=== PATIENT | female | born 1980 ===

== ENCOUNTER 2017-03-24 11:26 | Emergency (ER) | payer OTHER ==
[2017-03-24 11:37] VITALS: RESP 18; TEMP 97.9; O2SAT 98
--- NOTE | 2017-03-24 12:59 | C.PDOC ---
History Of Present Illness 37 year old female presents to the ED with complaints of left breast one month. Patient notes pain is constant and describes as cramping. She denies heavy lifting, weakness, numbness, chest pain, shortness of breath, or fever. Time Seen by Provider: 03/24/17 11:40 Chief Complaint (Nursing): Breast Problem History Per: Patient History/Exam Limitations: no limitations Onset/Duration Of Symptoms: Persistent (1month) Current Symptoms Are (Timing): Still Present Recent travel outside of the [place]: No Past Medical History Reviewed: Historical Data, Nursing Documentation, Vital Signs Vital Signs: Last Vital Signs Temp 97.9 F 03/24/17 11:35 Pulse 79 03/24/17 13:11 Resp 18 03/24/17 13:11 BP 124/72 03/24/17 13:11 Pulse Ox 98 03/24/17 21:48 - Medical History PMH: Back Problems Surgical History: (x2) Family History: States: Diabetes - Social History Hx Tobacco Use: No Hx Alcohol Use: No Hx Substance Use: No - Immunization History Hx Tetanus Toxoid Vaccination: No Hx Influenza Vaccination: No Hx Pneumococcal Vaccination: No Review Of Systems Except As Marked, All Systems Reviewed And Found Negative. Constitutional: Negative for: Fever Cardiovascular: Negative for: Chest Pain Respiratory: Negative for: Shortness of Breath Musculoskeletal: Positive for: Arm Pain (left arm pain ), Other (left breast pain) Skin: Negative for: Rash Neurological: Negative for: Weakness, Numbness Physical Exam - Physical Exam Appears: Non-toxic, No Acute Distress Skin: Warm, Dry, No Rash Head: Atraumatic, Normacephalic Eye(s): bilateral: Normal Inspection, PERRL, EOMI Oral Mucosa: Moist Neck: Normal ROM, Supple Chest: Symmetrical, No Deformity, No Tenderness, Other (Breasts: (-) erythema, ( -) tenderness, (-) swelling, (-) mass, (-) nipple discharge, (-) rash/ discoloration, (-) dimpling. Exam was chaperoned by computer systems technology instructorab Foreman ) Cardiovascular: Rhythm Regular, No Friction Rub, No Murmur Respiratory: No Rales, No Rhonchi, No Wheezing, Other (clear to auscultation bilaterally ) Back: No CVA Tenderness Extremity: Normal ROM, No Tenderness, Capillary Refill (good capillary refill, less than two seconds ), No Deformity, No Swelling Neurological/Psych: Oriented x3, Normal Speech, Normal Motor Gait: Steady ED Course And Treatment O2 Sat by Pulse Oximetry: 98 (RA) Pulse Ox Interpretation: Normal Medical Decision Making Medical Decision Making: Patient states she has a family history of breast Ca. PAtient was instructed to follow up with the medical doctor/OBGYN for mammogram referral. Disposition - Disposition Referrals: [facility] at [facility] [Outside] Disposition: HOME/ ROUTINE Disposition Time: 12:58 Condition: GOOD Additional Instructions: Follow up with the medical doctor within 1-2 days. return if worsened. 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 - Scribe Statement The provider has reviewed the documentation as recorded by the Scribaden Munoz All medical record entries made by the Scribe were at my direction and personally dictated by me. I have reviewed the chart and agree that the record accurately reflects my personal performance of the history, physical exam, medical decision making, and the department course for this patient. I have also personally directed, reviewed, and agree with the discharge instructions and disposition.
[2017-03-24 13:11] VITALS: BP 124/72; PULSE 79
== END 2017-03-24 13:20 | disposition home or self-care (01) ==
LOC: C.ER 11:26
DX: N64.4 Mastodynia (principal)

== ENCOUNTER 2017-04-25 14:49 | Emergency (ER) | payer OTHER ==
[2017-04-25] MEDS ORDERED: Sodium Chloride 0.9% 1,000 ML IV ONE (16:32)
[2017-04-25 16:55] LABS: BASO % 0.4 % (0.0-2.0); EOS # 0.2 K/uL (0.0-0.7); EOS % 2.3 % (0.0-4.0); LYMPH # 2.1 K/uL (1.0-4.3); MEAN CELL VOLUME 99.3 fL (81.0-99.0); MEAN CORPUSCULAR HGB CONC 33.2 g/dL (33.0-37.0); MEAN PLATELET VOLUME 7.8 fL (7.2-11.7); MONO # 0.6 K/uL (0.0-0.8); MONO % 7.8 % (0.0-10.0); NRBC % 0.1 % (0.0-2.0); RED CELL DISTRIBUTION WIDTH 12.6 % (11.5-14.5); WHITE BLOOD COUNT 7.4 K/uL (4.8-10.8)
--- NOTE | 2017-04-25 16:55 | C.PDOC ---
History Of Present Illness 37 y/o female presents to ED with complaints of intermittent abdominal pain for 4 days with associated vomiting and diarrhea. Patient states diarrhea resolved today and reports subjective fever. Patient denies back pain, urinary symptoms or any other complaints at this time. Time Seen by Provider: 04/25/17 16:15 Chief Complaint (Nursing): Abdominal Pain History Per: Patient History/Exam Limitations: no limitations Onset/Duration Of Symptoms: Days Current Symptoms Are (Timing): Still Present Location Of Pain/Discomfort: Epigastric Past Medical History Reviewed: Historical Data, Nursing Documentation, Vital Signs Vital Signs: Last Vital Signs Temp 98.2 F 04/25/17 18:57 Pulse 82 04/25/17 18:57 Resp 16 04/25/17 18:57 BP 122/70 04/25/17 18:57 Pulse Ox 100 04/25/17 19:01 - Medical History PMH: Back Problems Surgical History: (x2) Family History: States: Diabetes - Social History Hx Tobacco Use: No Hx Alcohol Use: No Hx Substance Use: No - Immunization History Hx Tetanus Toxoid Vaccination: No Hx Influenza Vaccination: No Hx Pneumococcal Vaccination: No Review Of Systems Except As Marked, All Systems Reviewed And Found Negative. Gastrointestinal: Positive for: Nausea, Vomiting, Abdominal Pain, Diarrhea Physical Exam - Physical Exam Appears: Non-toxic, No Acute Distress Skin: Warm, Dry, No Rash Head: Atraumatic, Normacephalic Eye(s): bilateral: Normal Inspection, PERRL, EOMI Ear(s): Bilateral: Normal Oral Mucosa: Moist Throat: No Erythema, No Exudate Neck: Normal ROM, Supple Chest: Symmetrical, No Tenderness Cardiovascular: Rhythm Regular, No Friction Rub, No Murmur Respiratory: Normal Breath Sounds, No Rales, No Rhonchi, No Wheezing Gastrointestinal/Abdominal: Soft, No Tenderness, No Guarding, No Rebound Back: Normal Inspection, No CVA Tenderness Extremity: Normal ROM, Capillary Refill (<2 seconds), No Swelling Neurological/Psych: Oriented x3, Normal Speech, Normal Motor Gait: Steady ED Course And Treatment - Laboratory Results Result Diagrams: 04/25/17 16:49 04/25/17 16:49 O2 Sat by Pulse Oximetry: 100 (RA) Pulse Ox Interpretation: Normal Medical Decision Making Medical Decision Making: On re-exam, the patient reports improvement of symptoms. Lungs are CTA, heart is RRR, abdomen is soft, non-tender and tolerating PO well. Ambulatory in the ED with steady gait. Follow up with the medical doctor within 1-2 days. Return if worsened. Disposition - Disposition Referrals: [facility] at [facility] [Outside] Disposition: HOME/ ROUTINE Disposition Time: 18:08 Condition: GOOD Additional Instructions: Follow up with the medical doctor within 1-2 days, return if worsened. Prescriptions: Famotidine [Pepcid] 20 mg PO BID #20 tab Ondansetron ODT [Zofran ODT] 1 odt PO BID PRN #10 odt PRN Reason: Nausea/Vomiting Instructions: Gastroenteritis (DC) Forms: [employer] (Angolan) Print Language: GEORGIAN - Clinical Impression Clinical Impression: Gastroenteritis - PA / FIELD PLACEMENT DIRECTOR / Resident Statement MD/DO has reviewed & agrees with the documentation as recorded. - Scribe Statement The provider has reviewed the documentation as recorded by the Soniaibaden Arreola All medical record entries made by the Soniaibaden were at my direction and personally dictated by me. I have reviewed the chart and agree that the record accurately reflects my personal performance of the history, physical exam, medical decision making, and the department course for this patient. I have also personally directed, reviewed, and agree with the discharge instructions and disposition.
[2017-04-25 16:59] LABS: URINE BILIRUBIN NEGATIVE (NEGATIVE); URINE BLOOD 2+ (NEGATIVE); URINE COLOR Yellow (YELLOW); URINE GLUCOSE (UA) NORMAL (Normal); URINE KETONE NEGATIVE (NEGATIVE); URINE LEUKOCYTE ESTERASE NEG Leu/uL (Negative); URINE PROTEIN NEGATIVE (NEGATIVE); URINE UROBILINOGEN NORMAL mg/dL (0.2-1.0); WBC URINE < 1 /hpf (0-5)
[2017-04-25 17:01] LABS: RBC URINE 3 /hpf (0-3)
[2017-04-25 17:04] LABS: ALB/GLOB RATIO 1.6 (1.0-2.1); ALKALINE PHOSPHATASE 66 U/L (38-126); ALT/SGPT 30 U/L (9-52); AST/SGOT 17 U/L (14-36); BILIRUBIN,TOTAL 0.7 mg/dL (0.2-1.3); BLOOD UREA NITROGEN 11 mg/dL (7-17); CALCIUM 7.7 mg/dl (8.6-10.4); CARBON DIOXIDE 25 mmol/L (22-30); CHLORIDE 100 mmol/L (98-107); GFR AFRICAN-AMERICAN > 60; GLUCOSE,RANDOM 82 mg/dL (65-105); SODIUM 134 mmol/L (132-148); TOTAL PROTEIN 7.3 g/dL (6.3-8.3)
[2017-04-25 19:01] VITALS: BP 122/70; PULSE 82; RESP 16; TEMP 98.2; O2SAT 100
== END 2017-04-25 18:57 | disposition home or self-care (01) ==
LOC: C.ER 14:49
DX: K52.9 Noninfective gastroenteritis and colitis, unspecified (principal)

== ENCOUNTER 2017-08-22 17:48 | Emergency (ER) | payer OTHER ==
[2017-08-22 17:55] VITALS: BP 119/78; PULSE 96; RESP 18; TEMP 97.7; O2SAT 98
--- NOTE | 2017-08-22 18:07 | C.PDOC ---
History Of Present Illness 37yo female, presents to ED with nasal congestion, mild sore throat and a dry, non-productive cough for the past 1 week. She reports a positive sick contact; states she has been taking Nyquil and occasionally using a daytime antihistamine without improvement of symptoms. No other complaints. Time Seen by Provider: 08/22/17 17:58 Chief Complaint (Nursing): Cough, Cold, Congestion History Per: Patient History/Exam Limitations: no limitations Onset/Duration Of Symptoms: Days Current Symptoms Are (Timing): Still Present Past Medical History Reviewed: Historical Data, Nursing Documentation, Vital Signs Vital Signs: Last Vital Signs Temp 97.7 F 08/22/17 17:53 Pulse 96 H 08/22/17 17:53 Resp 18 08/22/17 17:53 BP 119/78 08/22/17 17:53 Pulse Ox 98 08/22/17 18:07 - Medical History PMH: Back Problems Surgical History: (x2) Family History: States: Unknown Family Hx, Diabetes - Social History Hx Tobacco Use: No Hx Alcohol Use: No Hx Substance Use: No - Immunization History Hx Tetanus Toxoid Vaccination: No Hx Influenza Vaccination: No Hx Pneumococcal Vaccination: No Review Of Systems Except As Marked, All Systems Reviewed And Found Negative. ENT: Positive for: Nose Congestion, Throat Pain Respiratory: Positive for: Cough. Negative for: Shortness of Breath Physical Exam - Physical Exam Appears: Non-toxic, No Acute Distress Skin: Normal Color, Warm, Dry Head: Normacephalic Eye(s): bilateral: Normal Inspection Ear(s): Bilateral: Normal Nose: Other (nasal passage inflammation) Oral Mucosa: Moist Throat: Erythema (mild) Neck: Normal ROM, Supple Chest: Symmetrical Cardiovascular: Rhythm Regular Respiratory: Normal Breath Sounds, No Wheezing ED Course And Treatment O2 Sat by Pulse Oximetry: 98 (RA) Pulse Ox Interpretation: Normal Medical Decision Making Medical Decision Making: nasal congestion, probably part of viral syndrome no bacterial infection educated nasal decongestant medications. Disposition Doctor Will See Patient In The: Office Counseled Patient/Family Regarding: Studies Performed, Diagnosis - Disposition Referrals: [facility] at [facility] [Outside] Disposition: HOME/ ROUTINE Disposition Time: 18:06 Condition: GOOD Additional Instructions: sigue medicamentos para el gripe que dice "Cold and Sinus" que contiene el ingrediente de pseudafed/pseudoefedrina para descongestionar las pasages nasales. Usualmente tomado 3-4 veces al jennie Kaye Nyquil "Cold and Sinus" que ayuda dormir gus (recuerde que el pseudafed es un estimulante que katina el sueno) Instructions: Cough, Runny Nose, and the Common Cold, Pseudoephedrine Forms: [employer] (Turkmen) Print Language: JAPANESE - Clinical Impression Clinical Impression: Nasal congestion, Viral syndrome - Scribe Statement The provider has reviewed the documentation as recorded by the Scribe (Morena Whitlock) Provider Attestation: All medical record entries made by the Scribe were at my direction and personally dictated by me. I have reviewed the chart and agree that the record accurately reflects my personal performance of the history, physical exam, medical decision making, and the department course for this patient. I have also personally directed, reviewed, and agree with the discharge instructions and disposition.
== END 2017-08-22 18:17 | disposition home or self-care (01) ==
LOC: C.ER 17:48
DX: B34.9 Viral infection, unspecified (principal); R09.81 Nasal congestion

== ENCOUNTER 2018-02-11 20:35 | Emergency (ER) | payer OTHER ==
[2018-02-11 20:42] VITALS: BP 120/80; PULSE 71; RESP 20; TEMP 98.4; O2SAT 98
--- NOTE | 2018-02-11 21:08 | C.PDOC ---
History Of Present Illness 38-year-old female presents to the ED complaining of pain to the left throat and neck pain radiating to her left ear, onset today. States she feels as if her glands are swollen, and pain worsens with swallowing. This morning patient reports taking an unknown antibiotic that she had leftover at home, without relief. Otherwise she denies any fever, chills, cough, chest pain, or SOB. Time Seen by Provider: 02/11/18 20:51 Chief Complaint (Nursing): ENT Problem History Per: Patient History/Exam Limitations: None Onset/Duration Of Symptoms: Hrs Current Symptoms Are (Timing): Still Present Past Medical History Reviewed: Historical Data, Nursing Documentation, Vital Signs Vital Signs: Last Vital Signs Temp 98.4 F 02/11/18 20:41 Pulse 71 02/11/18 20:41 Resp 20 02/11/18 20:41 BP 120/80 02/11/18 20:41 Pulse Ox 98 02/11/18 21:11 - Medical History PMH: Back Problems Surgical History: (x2) Family History: States: Diabetes - Social History Hx Tobacco Use: No Hx Alcohol Use: No Hx Substance Use: No - Immunization History Hx Tetanus Toxoid Vaccination: No Hx Influenza Vaccination: No Hx Pneumococcal Vaccination: No Review Of Systems Constitutional: Negative for: Fever, Chills, Sweats ENT: Positive for: Throat Pain (left-sided) Cardiovascular: Negative for: Chest Pain Respiratory: Negative for: Cough, Shortness of Breath Gastrointestinal: Negative for: Nausea, Vomiting Musculoskeletal: Positive for: Neck Pain (left-sided) Neurological: Negative for: Headache, Dizziness Physical Exam - Physical Exam Appears: Well, Non-toxic, No Acute Distress Skin: Warm, Dry, No Rash Head: Atraumatic, Normacephalic Eye(s): bilateral: Normal Inspection, EOMI Ear(s): Bilateral: Normal Nose: Normal, No Flaring Oral Mucosa: Moist Lips: Normal Appearing, No Swelling Teeth: Normal Dentition Gingiva: Normal Appearing Throat: Erythema, No Exudate, No Drooling, No Mass Neck: Normal ROM, No Midline Cervical Tenderness, No Paracervical Tenderness, Supple Lymphatic: No Adenopathy (and no cervical lymphadenopathy appreciated) Chest: Symmetrical Cardiovascular: Rhythm Regular, No Murmur Respiratory: No Accessory Muscle Use, Other (speaking in full sentences, no respiratory distress) Extremity: Bilateral: Normal Color And Temperature, Normal ROM Neurological/Psych: Oriented x3, Normal Speech ED Course And Treatment O2 Sat by Pulse Oximetry: 98 (RA) Pulse Ox Interpretation: Normal Medical Decision Making Medical Decision Making: Plan: Patient discharged home with Amoxicillin prescription. Counseled regarding diagnosis and follow up instructions. Instructed to return to ER if symptoms worsen or new symptoms arise. Disposition Counseled Patient/Family Regarding: Diagnosis, Need For Followup, Rx Given - Disposition Referrals: Hamilton Atkins MD [Staff Provider] - Disposition: HOME/ ROUTINE Disposition Time: 21:01 Condition: GOOD Additional Instructions: Egan ibuprofeno cada 6 horas para el dolor / fiebre Egan amoxicilina 2 veces al da carlos 10 figueroa seguimiento con ENT Prescriptions: Amoxicillin 875 mg PO BID #20 tablet Instructions: Sore Throat, Adult (DC) Forms: [employer] (Cambodian) Print Language: HEBREW - POA Present On Arrival: None - Clinical Impression Clinical Impression: Pharyngitis - 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 - Scribe Statement The provider has reviewed the documentation as recorded by the Scribe (Sidra Zambrano) All medical record entries made by the Scribe were at my direction and personally dictated by me. I have reviewed the chart and agree that the record accurately reflects my personal performance of the history, physical exam, medical decision making, and the department course for this patient. I have also personally directed, reviewed, and agree with the discharge instructions and disposition.
== END 2018-02-11 21:11 | disposition home or self-care (01) ==
LOC: C.ER 20:35
DX: J02.9 Acute pharyngitis, unspecified (principal)

== ENCOUNTER 2018-02-15 18:14 | Emergency (ER) | payer OTHER ==
[2018-02-15 18:32] VITALS: TEMP 98.1
[2018-02-15 20:29] LABS: BASO % 0.5 % (0.0-2.0); EOS # 0.1 K/uL (0.0-0.7); EOS % 1.6 % (0.0-4.0); HEMOGLOBIN 13.4 g/dL (11.0-16.0); LYMPH # 2.3 K/uL (1.0-4.3); LYMPH % 36.1 % (20.0-40.0); MEAN CORPUSCULAR HEMOGLOBIN 33.5 pg (27.0-31.0); MEAN CORPUSCULAR HGB CONC 33.8 g/dL (33.0-37.0); MEAN PLATELET VOLUME 8.3 fL (7.2-11.7); MONO # 0.5 K/uL (0.0-0.8); MONO % 8.4 % (0.0-10.0); NEUT # 3.4 K/uL (1.8-7.0); NEUT % 53.4 % (50.0-75.0); RED CELL DISTRIBUTION WIDTH 12.9 % (11.5-14.5); WHITE BLOOD COUNT 6.3 K/uL (4.8-10.8)
[2018-02-15 20:42] LABS: ALB/GLOB RATIO 1.5 (1.0-2.1); ALBUMIN 4.4 g/dL (3.5-5.0); ALT/SGPT 31 U/L (9-52); AST/SGOT 22 U/L (14-36); BLOOD UREA NITROGEN 13 mg/dL (7-17); CALCIUM 9.5 mg/dl (8.6-10.4); GFR NON-AFRICAN AMERICAN > 60
[2018-02-15 20:48] LABS: BARBITURATES, UR NEGATIVE (NEGATIVE); BENZODIAZEPINES, UR NEGATIVE (NEGATIVE); OPIATES, UR NEGATIVE (NEGATIVE); PHENCYCLIDINE, UR NEGATIVE (NEGATIVE)
[2018-02-15 20:53] LABS: B-TYPE NATRIURETIC PEPTIDE 39.8 pg/mL (0-450)
[2018-02-15 21:09] VITALS: BP 114/80; PULSE 67; RESP 12; O2SAT 100
[2018-02-15 21:15] LABS: SQUAMOUS EPITHIAL 1 /hpf (0-5); URINE BILIRUBIN NEGATIVE (NEGATIVE); URINE CLARITY Clear (Clear); URINE COLOR Straw (YELLOW); URINE GLUCOSE (UA) NORMAL (Normal); URINE LEUKOCYTE ESTERASE NEG Leu/uL (Negative); URINE PROTEIN NEGATIVE (NEGATIVE); URINE UROBILINOGEN NORMAL mg/dL (0.2-1.0)
[2018-02-15 21:24] LABS: URINE BLOOD 1+ (NEGATIVE)
--- NOTE | 2018-02-15 21:41 | C.PDOC ---
History Of Present Illness 38 y/o female presents to the ED complaining of feeling lethargic since around 4pm today. Has not had similar symptoms in the past. Reviewed records, patient with many recent ER visits for vague complaints, seen 02/11 and given antibiotics for throat pain. Patient reports taking the antibiotics as prescribed. Denies any syncope, headache, change in mental status, visual loss, or neurological changes. 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 She has 1 child at home, no new stressors. Time Seen by Provider: 02/15/18 20:06 Chief Complaint (Nursing): Syncope History Per: Patient History/Exam Limitations: no limitations Onset/Duration Of Symptoms: Hrs Current Symptoms Are (Timing): Still Present Seizure Or Post-ictal Symptoms: None Fall Associated With With Symptoms: No, No Injury As Result Of Fall Past Medical History Reviewed: Historical Data, Nursing Documentation, Vital Signs Vital Signs: Last Vital Signs Temp 98.1 F 02/15/18 18:30 Pulse 67 02/15/18 21:08 Resp 12 02/15/18 21:08 BP 114/80 02/15/18 21:08 Pulse Ox 100 02/15/18 21:53 - Medical History PMH: Back Problems Surgical History: (x2) Family History: States: Diabetes - Social History Hx Tobacco Use: No Hx Alcohol Use: No Hx Substance Use: No - Immunization History Hx Tetanus Toxoid Vaccination: No Hx Influenza Vaccination: No Hx Pneumococcal Vaccination: No Review Of Systems Except As Marked, All Systems Reviewed And Found Negative. Constitutional: Positive for: Weakness (lethargy). Negative for: Fever, Chills Eyes: Negative for: Vision Change Cardiovascular: Negative for: Chest Pain, Palpitations Respiratory: Negative for: Shortness of Breath Gastrointestinal: Negative for: Nausea, Vomiting Neurological: Negative for: Weakness, Numbness, Incoordination, Change in Speech , Confusion, Altered Mental Status, Headache Physical Exam - Physical Exam Appears: Non-toxic, No Acute Distress Skin: Warm, Dry, No Pale, No Rash Head: Atraumatic, Normacephalic Eye(s): bilateral: Normal Inspection, PERRL, EOMI Ear(s): Bilateral: Normal Nose: Normal Oral Mucosa: Moist Neck: Normal ROM, Supple Chest: Symmetrical Cardiovascular: Rhythm Regular, No Murmur Respiratory: Normal Breath Sounds, No Rales, No Rhonchi, No Wheezing Gastrointestinal/Abdominal: Soft, No Tenderness, No Distention Extremity: Bilateral: Atraumatic, Normal Color And Temperature, Normal ROM Pulses: Left Dorsalis Pedis: Normal, Right Dorsalis Pedis: Normal Neurological/Psych: Oriented x3, Normal Speech, Normal Cranial Nerves, Cerebellar Signs (nml), Normal Motor, Normal Sensation, Normal Reflexes Gait: Steady ED Course And Treatment - Laboratory Results Result Diagrams: 02/15/18 20:23 02/15/18 20:23 Lab Interpretation: Normal (ua/tox/ETOH neg.) Urine POC: Negative ECG: Interpreted By Me ECG Rhythm: Sinus Rhythm ECG Interpretation: Normal Rate From EC O2 Sat by Pulse Oximetry: 100 (RA) Pulse Ox Interpretation: Normal - Radiology CXR: Interpreted by Me (x 2 views) CXR Interpretation: Yes: No Acute Disease Reevaluation Time: 21:55 (unchanged, asymptomatic) Medical Decision Making Medical Decision Making: Initial Plan: --EKG --CXR --Labs 2200: remains asymptomatic Disposition Doctor Will See Patient In The: Office Counseled Patient/Family Regarding: Studies Performed, Diagnosis - Disposition Referrals: [facility] [Outside] [facility] [Outside] [facility] [Outside] [facility] [Outside] [facility] [Outside] Disposition: HOME/ ROUTINE Disposition Time: 21:53 Condition: GOOD Additional Instructions: examenes de la sheldon, orina, ekg, placa del pecho todos normales. Instructions: Fatigue (DC) Forms: [employer] (Cameroonian) Print Language: CITIZEN OF [place] - Clinical Impression Clinical Impression: Lethargy - Scribe Statement The provider has reviewed the documentation as recorded by the Scribe (Sidra Zambrano) Provider Attestation: All medical record entries made by the Scribe were at my direction and personally dictated by me. I have reviewed the chart and agree that the record accurately reflects my personal performance of the history, physical exam, medical decision making, and the department course for this patient. I have also personally directed, reviewed, and agree with the discharge instructions and disposition.
--- NOTE | 2018-02-16 10:23 | RAD ---
HISTORY: SOB COMPARISON: No prior. TECHNIQUE: Chest PA and lateral FINDINGS: Examination limited by habitus. LUNGS: No focal consolidation. Please note that chest x-ray has limited sensitivity for the detection of pulmonary masses. PLEURA: No significant pleural effusion identified. No definite pneumothorax . CARDIOVASCULAR: The cardiomediastinal silhouette appears within normal limits of size. OSSEOUS STRUCTURES: No acute osseous abnormality identified. VISUALIZED UPPER ABDOMEN: Unremarkable. OTHER FINDINGS: None. IMPRESSION: No focal consolidation, significant pleural effusion, or definite pneumothorax identified.
--- NOTE | 2018-02-16 11:51 | CARD ---
APPROVED REPORT Date of service: 02/15/2018 EKG Measurement Heart [id number] <Conclusion> Sinus bradycardia Otherwise normal ECG
== END 2018-02-15 22:00 | disposition home or self-care (01) ==
LOC: C.ER 18:14
DX: R53.83 Other fatigue (principal)